=== PATIENT | male | born 1960 | race Caucasian/White ===

== ENCOUNTER 2021-02-07 15:48 | Inpatient (IN) | payer MEDICARE, MEDICAID ==
[~2021-02-07] VITALS: Ht 182.9 cm; Wt 131.8 kg
[2021-02-07 17:04] LABS: BASOPHILS % (AUTO) 0.5 % (0-1); EOSINOPHILS # (AUTO) 0.1 X10'3 (0-0.9); EOSINOPHILS % (AUTO) 1.4 % (0-6); HEMATOCRIT 30.6 % (42.0-52.0); HEMOGLOBIN 10.3 g/dl (14.0-17.9); LYMPHOCYTES % (AUTO) 24.9 % (21-51); MEAN CORPUSCULAR HEMOGLOBIN 33.4 PG (27.0-31.0); MEAN CORPUSCULAR HGB CONC 33.8 g/dL (33.0-36.5); MEAN CORPUSCULAR VOLUME 98.7 FL (78-98); MEAN PLATELET VOLUME 9.2 FL (7.4-10.4); MONOCYTES # (AUTO) 0.9 X10'3 (0-0.9); NEUTROPHILS % (AUTO) 62.2 % (42-75); PLATELET COUNT 196 X10'3 (140-440); RED CELL DISTRIBUTION WIDTH 15.4 % (11.5-14.5)
[2021-02-07 17:17] LABS: ALANINE AMINOTRANSFERASE 74 U/L (12-78); ALBUMIN 3.7 G/DL (3.4-5.0); ALBUMIN/GLOBULIN RATIO 0.8 (1.1-1.5); ALKALINE PHOSPHATASE 73 IU/L (46-116); ANION GAP 19 (8-16); ASPARTATE AMINO TRANSFERASE 109 U/L (10-37); BILIRUBIN,TOTAL 0.4 MG/DL (0.1-1.0); BLOOD UREA NITROGEN 77 MG/DL (7-18); BUN/CREATININE RATIO 5.9 (5.4-32.0); CALCIUM 6.1 MG/DL (8.5-10.1); CHLORIDE 98 MMOL/L (99-107); CREATININE 13.14 MG/DL (0.60-1.10); GLUCOSE 99 MG/DL (70-104); MAGNESIUM 2.1 MG/DL (1.5-2.4); SODIUM 139 MMOL/L (135-145); TOTAL CARBON DIOXIDE 22.3 MMOL/L (24-32); TOTAL PROTEIN 8.3 G/DL (6.4-8.2); eGFR 4 ML/MIN
[2021-02-07 17:23] LABS: POTASSIUM 6.4 MMOL/L (3.5-5.1)
[2021-02-07] MEDS ORDERED: cefTAZidime inj. 1 GM in normal saline 100ml IV soln 100 ML IV STA (17:39)
[2021-02-07] MEDS ORDERED: linezolid 600mg/300ml PREMIX 300 ML IV ONE (17:40)
[2021-02-07] MEDS ORDERED: heparin 1,000unit/ml 10ml vial 10 ML IV ONE (17:45)
[2021-02-07] MEDS ORDERED: heparin 1,000 units/ml 10ml inj IV ONE (17:45)
[2021-02-07] MEDS ORDERED: albumin (human) 25% 100ml IV 100 ML IV PRN (17:45)
[2021-02-07] MEDS ORDERED: heparin 1,000 units/ml 10ml inj HE ONE ×2 (17:50)
[2021-02-07] MEDS ORDERED: magnesium 4gm in 100ml NS 100 ML IV PRN (19:05)
[2021-02-07] MEDS ORDERED: diphenhydrAMINE 25mg capsule PO PRN (19:05)
[2021-02-07] MEDS ORDERED: magnesium Cl slow-release 64mg tablet PO PRN (19:05)
[2021-02-07] MEDS ORDERED: potassium Cl 20 mEq SR tablet PO PRN ×2 (19:05)
[2021-02-07] MEDS ORDERED: ondansetron/PF 4mg/2ml inj IV PRN (19:05)
[2021-02-07] MEDS ORDERED: magnesium hydroxide 30ml (MOM) UD suspension PO PRN (19:05)
[2021-02-07] MEDS ORDERED: magnesium 2GM in 50ml NS 50 ML IV PRN (19:05)
[2021-02-07] MEDS ORDERED: potassium Cl 40MEQ/1/2NS 520ml 520 ML IV PRN ×2 (19:05)
[2021-02-07] MEDS ORDERED: mag hydrox/Alum hydrox/simeth 30ml oral suspension PO PRN (19:05)
[2021-02-07] MEDS ORDERED: ipratropium/albuterol 3ml nebule NEB PRN (19:35)
[2021-02-07] MEDS ORDERED: methylPREDNISolone sod succ 125mg/2ml vial IV ONE (19:35)
[2021-02-07 20:00] VITALS: BP 127/74
[2021-02-07] MEDS: heparin, porcine 5000 units/ml vial SQ SCH (20:00)
[2021-02-07] MEDS: docusate sod 100mg capsule PO SCH (20:00)
[2021-02-07] MEDS ORDERED: cefTAZidime inj. 1 GM in normal saline 100ml IV soln 100 ML IV SCH (20:00)
[2021-02-07] MEDS: methylPREDNISolone sod succ 125mg/2ml vial IV SCH (20:00)
[2021-02-07] MEDS: K and/or MAG REPLACEMENT MC SCH (20:00)
--- NOTE | 2021-02-07 20:18 | NUR ---
Patient in [id number] . I have received report from Rober- [facility] IN ER and had the opportunity to ask questions and assume patient care.
[2021-02-07 22:00] VITALS: BP 120/91
--- NOTE | 2021-02-07 22:06 | NUR ---
pt having difficulty breathing, Sa02 low in mid 80s, pt denies any problems, RT notified and Dr Vallejo
--- NOTE | 2021-02-07 22:14 | NUR ---
Dr Vallejo called, ordered ABG and lasix 4mg IV once.
[2021-02-07] MEDS: ipratropium/albuterol 3ml nebule NEB SCH (22:15)
[2021-02-07] MEDS ORDERED: furosemide 40mg/4ml inj IV ONE (22:15)
[2021-02-07 22:25] LABS: ABG BASE EXCESS -9.3 mmol/L (-2.0-2.0); ABG HCO3 19.8 mmol/L (22.0-26.0); ABG PCO2 (T) 57.9 mmHg (35.0-48.0); ABG PO2 (T) 97.8 mmHg (75.0-100.0); ALLEN'S TEST POSITIVE; FCOHb 1.3 % (0.0-3.9); FMetHb 0.3 % (0.0-1.5); FO2Hb 93.5 % (94-97)
--- NOTE | 2021-02-07 22:52 | NUR ---
RT evaluated pt ABG ph 7.152, Dr Vallejo Ordered Bipap. P trecieving treatment at 40%Fi02, Dialysis here also
[2021-02-07 23:39] LABS: ABG BASE EXCESS -8.1 mmol/L (-2.0-2.0); ABG HCO3 20.4 mmol/L (22.0-26.0); ABG PCO2 (T) 55.6 mmHg (35.0-48.0); ABG PO2 (T) 66.2 mmHg (75.0-100.0); ALLEN'S TEST POSITIVE; FCOHb 1.1 % (0.0-3.9); FMetHb 0.1 % (0.0-1.5); TOTAL HEMOGLOBIN 11.9 G/dl (14.0-18.0)
--- NOTE | 2021-02-07 23:48 | NUR ---
2nd ABG done, ph 7.18 RT readjusting treatment.
[2021-02-08 02:00] VITALS: BP 147/80
[2021-02-08] MEDS: methylPREDNISolone sod succ 125mg/2ml vial IV SCH ×4 (02:00→20:27)
[2021-02-08] MEDS: ipratropium/albuterol 3ml nebule NEB SCH ×6 (03:18→23:21)
[2021-02-08 06:00] VITALS: BP 168/88
[2021-02-08 06:09] LABS: BASOPHILS % (AUTO) 0.3 % (0-1); EOSINOPHILS # (AUTO) 0.1 X10'3 (0-0.9); EOSINOPHILS % (AUTO) 1.1 % (0-6); HEMATOCRIT 33.5 % (42.0-52.0); LYMPHOCYTES # (AUTO) 1.6 X10'3 (1.1-4.8); LYMPHOCYTES % (AUTO) 23.6 % (21-51); MEAN CORPUSCULAR HGB CONC 32.7 g/dL (33.0-36.5); MEAN CORPUSCULAR VOLUME 100.9 FL (78-98); MEAN PLATELET VOLUME 9.1 FL (7.4-10.4); MONOCYTES # (AUTO) 0.7 X10'3 (0-0.9); MONOCYTES % (AUTO) 10.1 % (2-12); NEUTROPHILS # (AUTO) 4.4 X10'3 (1.8-7.7); NEUTROPHILS % (AUTO) 64.9 % (42-75); PLATELET COUNT 195 X10'3 (140-440); RED BLOOD COUNT 3.32 X10'6 (4.70-6.10); RED CELL DISTRIBUTION WIDTH 15.7 % (11.5-14.5); WHITE BLOOD COUNT 6.7 X10'3 (4.5-11.0)
--- NOTE | 2021-02-08 06:30 | NUR ---
Patient in room PCU 3019. I have received report from Barbara FORD and had the opportunity to ask questions and assume patient care.
[2021-02-08 06:31] LABS: ALANINE AMINOTRANSFERASE 365 U/L (12-78); ALBUMIN 3.6 G/DL (3.4-5.0); ALBUMIN/GLOBULIN RATIO 0.8 (1.1-1.5); ALKALINE PHOSPHATASE 72 IU/L (46-116); ANION GAP 16 (8-16); ASPARTATE AMINO TRANSFERASE 821 U/L (10-37); BILIRUBIN,TOTAL 0.6 MG/DL (0.1-1.0); BLOOD UREA NITROGEN 50 MG/DL (7-18); BUN/CREATININE RATIO 5.1 (5.4-32.0); CALCIUM 7.3 MG/DL (8.5-10.1); CHLORIDE 99 MMOL/L (99-107); CHOL/HDL RATIO 5.7 (0.00-4.99); CHOLESTEROL 142 MG/DL (0-200); CREATININE 9.77 MG/DL (0.60-1.10); GLUCOSE 78 MG/DL (70-104); HDL CHOLESTEROL 25 MG/DL (35-60); LDL CHOLESTEROL 81 MG/DL (50-100); MAGNESIUM 1.9 MG/DL (1.5-2.4); PHOSPHORUS 8.1 MG/DL (2.3-4.5); POTASSIUM 4.4 MMOL/L (3.5-5.1); SODIUM 140 MMOL/L (135-145); TOTAL CARBON DIOXIDE 25.2 MMOL/L (24-32); TOTAL PROTEIN 8.4 G/DL (6.4-8.2); TRIGLYCERIDES 252 MG/DL (20-135); eGFR 5 ML/MIN
--- NOTE | 2021-02-08 06:49 | NUR ---
Patient in room PCU 3019. I have received report from Armando and had the opportunity to ask questions and assume patient care.
[2021-02-08] MEDS: K and/or MAG REPLACEMENT MC SCH ×2 (08:00→20:00)
[2021-02-08] MEDS: linezolid 600mg/300ml PREMIX 300 ML IV SCH ×2 (08:00→20:00)
[2021-02-08] MEDS: cefTAZidime inj. 1 GM in normal saline 100ml IV soln 100 ML IV SCH ×2 (08:00→20:00)
[2021-02-08] MEDS ORDERED: LIDOcaine 1% W/epiNEPHrine 1:200,000 10ml vial ONE (08:34)
[2021-02-08] MEDS ORDERED: heparin 1,000 units/ml 10ml inj HE ONE ×2 (08:55)
[2021-02-08] MEDS ORDERED: heparin 1,000unit/ml 10ml vial 10 ML IV ONE (08:55)
[2021-02-08] MEDS ORDERED: linezolid 600mg/300ml PREMIX 300 ML IV SCH (08:55)
[2021-02-08] MEDS ORDERED: heparin 1,000 units/ml 10ml inj IV ONE (08:55)
[2021-02-08] MEDS: docusate sod 100mg capsule PO SCH ×2 (09:21→20:00)
[2021-02-08] MEDS: heparin, porcine 5000 units/ml vial SQ SCH ×2 (09:21→20:26)
--- NOTE | 2021-02-08 10:29 | NUR ---
Page to PICC nurse: Good Morning. I have a renal patient Lazarus Renteria Room 3019, that we need a PIV on and no one has been successful. Thanks Kristy ext [phone]
--- NOTE | 2021-02-08 10:55 | NUR ---
Page Sent promotional table spacer PAGER ID: [phone] MESSAGE: [phone] Myra. Patient requesting gabapentin and Tylenol for neuropathy. Kristy [phone]
[2021-02-08 11:00] VITALS: BP 173/86
[2021-02-08] MEDS ORDERED: ALLO100T PO (11:28)
[2021-02-08] MEDS ORDERED: FURO-150 PO (11:28)
[2021-02-08] MEDS ORDERED: FAMO20TA8 PO (11:28)
[2021-02-08] MEDS ORDERED: METO1TAB12 PO (11:28)
[2021-02-08] MEDS ORDERED: VALS160T30 PO (11:28)
[2021-02-08] MEDS ORDERED: FENO145T38 PO (11:28)
[2021-02-08] MEDS ORDERED: AMLO-94 PO (11:28)
[2021-02-08] MEDS ORDERED: CALC667C5 PO ×2 (11:28)
[2021-02-08] MEDS ORDERED: CLOP75TA15 PO (11:32)
[2021-02-08] MEDS ORDERED: GABA300C PO (11:32)
[2021-02-08] MEDS ORDERED: ALBU8HFA PO (11:53)
[2021-02-08] MEDS ORDERED: METO-411 PO (11:53)
[2021-02-08] MEDS ORDERED: AMLO10TA13 PO (11:53)
[2021-02-08] MEDS ORDERED: TERA5CAP4 PO (11:53)
[2021-02-08] MEDS ORDERED: FURO-149 PO (11:53)
--- NOTE | 2021-02-08 12:16 | NUR ---
PT REFUSED SVN
--- NOTE | 2021-02-08 14:16 | NUR ---
Noted pt to be started on Zyvox however not given today as pt uncooperative per EMR. Pt would benefit from low tyramine nutrition therapy education if to receive Zyvox. Will continue to follow. Addendum: 02/08/21 at [address] Amended: Links added.
--- NOTE | 2021-02-08 15:30 | NUR ---
PT REFUSED 1500 SVN
[2021-02-08 18:00] VITALS: BP 160/64
--- NOTE | 2021-02-08 18:52 | NUR ---
Problems reprioritized. Patient report given, questions answered & plan of care reviewed with Barbara FORD.
--- NOTE | 2021-02-08 20:00 | NUR ---
Unabe to give ABX, as IV is not patent, unable to start IV, charge nurse notified and suggested for day shift ultrasound IV placement.
[2021-02-08] MEDS: furosemide 40mg tablet PO SCH (20:23)
[2021-02-08] MEDS: lactobacillus rhamnosus 10,000 MMU CELLS/CAPSULE PO SCH (20:23)
[2021-02-08] MEDS: famotidine 20mg tablet PO SCH (20:24)
[2021-02-08] MEDS: calcium acetate 667mg (PhosLO) capsule PO SCH (20:25)
[2021-02-08] MEDS: metoprolol succinate 25mg (24-HOUR) SR. Tablet PO SCH (20:32)
[2021-02-08 22:00] VITALS: BP 141/70
--- NOTE | 2021-02-08 22:29 | NUR ---
Paged Dr Vallejo concerning pt cramping in leg, Dr Vallejo called back and left message stating not her priority and to pass it on to day time MD.
[2021-02-08] MEDS: terazosin 5mg capsule PO SCH (22:32)
[2021-02-09] MEDS: gabapentin 300mg capsule PO SCH ×2 (00:26→11:13)
[2021-02-09 02:00] VITALS: BP 100/63
[2021-02-09] MEDS: methylPREDNISolone sod succ 125mg/2ml vial IV SCH ×4 (02:00→20:30)
[2021-02-09] MEDS: ipratropium/albuterol 3ml nebule NEB SCH ×5 (03:00→19:17)
[2021-02-09 06:00] LABS: BASOPHILS % (AUTO) 0.7 % (0-1); EOSINOPHILS # (AUTO) 0.1 X10'3 (0-0.9); EOSINOPHILS % (AUTO) 2.1 % (0-6); HEMATOCRIT 30.5 % (42.0-52.0); HEMOGLOBIN 10.2 g/dl (14.0-17.9); LYMPHOCYTES # (AUTO) 1.2 X10'3 (1.1-4.8); LYMPHOCYTES % (AUTO) 24.2 % (21-51); MEAN CORPUSCULAR HEMOGLOBIN 33.3 PG (27.0-31.0); MEAN CORPUSCULAR HGB CONC 33.5 g/dL (33.0-36.5); MEAN CORPUSCULAR VOLUME 99.5 FL (78-98); MEAN PLATELET VOLUME 9.1 FL (7.4-10.4); MONOCYTES # (AUTO) 0.5 X10'3 (0-0.9); PLATELET COUNT 158 X10'3 (140-440); RED BLOOD COUNT 3.07 X10'6 (4.70-6.10); RED CELL DISTRIBUTION WIDTH 15.3 % (11.5-14.5); WHITE BLOOD COUNT 4.8 X10'3 (4.5-11.0)
--- NOTE | 2021-02-09 06:05 | NUR ---
per tele report pt had third degree heart block at 0414 now in sinus rhythm.
--- NOTE | 2021-02-09 06:09 | NUR ---
Problems reprioritized. Patient report given, questions answered & plan of care reviewed with Rossy-LILIANA.
[2021-02-09 06:22] LABS: ALANINE AMINOTRANSFERASE 387 U/L (12-78); ALBUMIN/GLOBULIN RATIO 0.7 (1.1-1.5); ALKALINE PHOSPHATASE 66 IU/L (46-116); ANION GAP 12 (8-16); ASPARTATE AMINO TRANSFERASE 522 U/L (10-37); BILIRUBIN,TOTAL 0.5 MG/DL (0.1-1.0); BLOOD UREA NITROGEN 52 MG/DL (7-18); BUN/CREATININE RATIO 6.1 (5.4-32.0); CALCIUM 7.4 MG/DL (8.5-10.1); CHLORIDE 100 MMOL/L (99-107); CREATININE 8.59 MG/DL (0.60-1.10); GLUCOSE 114 MG/DL (70-104); MAGNESIUM 2.2 MG/DL (1.5-2.4); PHOSPHORUS 7.4 MG/DL (2.3-4.5); POTASSIUM 4.4 MMOL/L (3.5-5.1); SODIUM 138 MMOL/L (135-145); TOTAL CARBON DIOXIDE 25.6 MMOL/L (24-32); TOTAL PROTEIN 7.3 G/DL (6.4-8.2); eGFR 6 ML/MIN
--- NOTE | 2021-02-09 06:28 | NUR ---
Dr Vallejo ordered EKG for 3rd degree heart block report
--- NOTE | 2021-02-09 06:39 | NUR ---
Patient in room PCU 3019. I have received report from LILIANA AJ and had the opportunity to ask questions and assume patient care.
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
--- NOTE | 2021-02-09 06:45 | NUR ---
PAGE SENT PAGER ID: [phone] MESSAGE: [phone], RUFINO GOMES TAKEN PER ORDER. THANK YOU, NESS, [phone]
--- NOTE | 2021-02-09 07:26 | NUR ---
PT REFUSED 0600 VS PER SELF SEALING FUEL TANK REPAIRER
[2021-02-09] MEDS ORDERED: amLODIPine 5mg tablet PO SCH (08:00)
[2021-02-09] MEDS: docusate sod 100mg capsule PO SCH (08:00)
[2021-02-09] MEDS ORDERED: clopidogrel 75mg tablet PO SCH (08:00)
[2021-02-09] MEDS ORDERED: fenofibrate 145mg tablet PO SCH (08:00)
[2021-02-09] MEDS ORDERED: losartan 50mg tablet PO SCH (08:00)
[2021-02-09] MEDS: K and/or MAG REPLACEMENT MC SCH (08:00)
[2021-02-09] MEDS: furosemide 40mg tablet PO SCH ×3 (08:00→20:29)
[2021-02-09] MEDS ORDERED: allopurinol 100mg tablet PO SCH (08:00)
[2021-02-09 08:45] VITALS: BP 114/62
[2021-02-09] MEDS: heparin, porcine 5000 units/ml vial SQ SCH ×2 (08:53→20:30)
[2021-02-09] MEDS: lactobacillus rhamnosus 10,000 MMU CELLS/CAPSULE PO SCH ×2 (08:55→20:29)
[2021-02-09] MEDS: calcium acetate 667mg (PhosLO) capsule PO SCH ×3 (08:55→20:28)
[2021-02-09] MEDS: famotidine 20mg tablet PO SCH ×2 (08:56→20:28)
--- NOTE | 2021-02-09 09:46 | NUR ---
3019 PT'S PIV NOT PATENT. PT IS HD, PLEASE COME AND WORK YOUR MAGIC. THANK YOU. NESS Jeffers [phone]
[2021-02-09 11:00] VITALS: BP 141/67
--- NOTE | 2021-02-09 11:08 | NUR ---
0700 SVN TRIAGED. THERAPIST NOT AVAILABLE
[2021-02-09] MEDS: linezolid 600mg tablet PO SCH ×2 (11:11→20:29)
[2021-02-09] MEDS: metoprolol succinate 25mg (24-HOUR) SR. Tablet PO SCH (11:12)
[2021-02-09 11:13] VITALS: BP_SYST 142
[2021-02-09] MEDS ORDERED: DICL100G30 TOP (11:21)
--- NOTE | 2021-02-09 11:24 | NUR ---
PAGE SENT PAGER ID: [phone] MESSAGE: [phone], VANESSA CANCINO, PT REQUESTING DIECLOFEMAC CREAM FOR HIS FEET, MED FROM HOME, PT REQUESTING MED, REQUESTING ORDER. THANK YOU, NESS [phone]
--- NOTE | 2021-02-09 14:26 | NUR ---
PT'S AM SOLUMEDRJOSE HELD D/T NO IV ACCESS.
--- NOTE | 2021-02-09 14:42 | NUR ---
PAGE SENT PAGER ID: [phone] MESSAGE: [phone], VANESSA CANCINO. PT DENIES ALLERGY TO TYLENOL. PT REQUESTING TYLENOL AND PREVIOUSLY REQUESTED FOOT CREAM FOR PAIN RELIEF. THANK YOU, NESS Jeffers [phone]
--- NOTE | 2021-02-09 15:34 | NUR ---
VERBAL ORDERS FROM DR LORENZO TO HOLD METOPROLOL
--- NOTE | 2021-02-09 15:36 | NUR ---
PT REFUSED 1500 VS. WILL TRY LATER.
--- NOTE | 2021-02-09 17:44 | NUR ---
PT'S CAREGIVER FRANSICO , REPORTS THE PT HAS A DIALYSIS APPOINTMENT AT [facility] IN [place], 11:00 - 15:00.
--- NOTE | 2021-02-09 18:12 | NUR ---
Problems reprioritized. Patient report given, questions answered & plan of care reviewed with LILIANA AJ.
[2021-02-09] MEDS: terazosin 5mg capsule PO SCH (20:35)
[2021-02-09] MEDS ORDERED: gabapentin 300mg capsule PO SCH (21:00)
--- NOTE | 2021-02-09 22:13 | NUR ---
Pt yelling, wanting to go home because we wont give him his foot cream or tylenol. Raised his voice and was yelling at staff and cursing. Charge nurse notified and told the pt he was free to leave. Pt said he was getting DC so he could get his home meds and then sit in ED to be readmitted. charge nurse removed IV and pt dressed self and came into hallway where a wheel chair was brought to him, and left.
[2021-02-10] MEDS ORDERED: midazolam 1 mg/ML 2ml injection ONE (09:09)
[2021-02-10] MEDS ORDERED: heparin 1,000unit/ml 10ml vial 10 ML ONE (09:09)
[2021-02-10] MEDS ORDERED: fentaNYL/PF 50MCG/1 ML 2ML syringe ONE (09:09)
[2021-02-10] MEDS ORDERED: LIDOcaine 1% W/epiNEPHrine 1:200,000 10ml vial ONE (09:09)
== END 2021-02-09 22:00 | disposition left against medical advice (07) | DRG 314 ==
LOC: ER 15:49 → UNDOADMIN 19:08 → PCU 3S 19:08
PROVIDERS: ADMIT Family Medicine; ATTEND Family Medicine
PROC: 5A09357 Assistance with Respiratory Ventilation, Less than 24 Consecutive Hours, Continuous Positive Airway Pressure (ICD-10-PCS; 2021-02-07)
PROC: 5A1D70Z Performance of Urinary Filtration, Intermittent, Less than 6 Hours Per Day (ICD-10-PCS; 2021-02-07)
PROC: 05PYX3Z Removal of Infusion Device from Upper Vein, External Approach (ICD-10-PCS; principal; 2021-02-08)
PROC: 5A1D70Z Performance of Urinary Filtration, Intermittent, Less than 6 Hours Per Day (ICD-10-PCS; 2021-02-08)
DX: T80.211A Bloodstream infection due to central venous catheter, initial encounter (principal); N18.6 End stage renal disease; J96.20 Acute and chronic respiratory failure, unspecified whether with hypoxia or hypercapnia; E87.2 Acidosis; I44.2 Atrioventricular block, complete; J44.1 Chronic obstructive pulmonary disease with (acute) exacerbation; I12.0 Hypertensive chronic kidney disease with stage 5 chronic kidney disease or end stage renal disease; N17.9 Acute kidney failure, unspecified; E87.5 Hyperkalemia; E78.1 Pure hyperglyceridemia; E78.5 Hyperlipidemia, unspecified; G47.33 Obstructive sleep apnea (adult) (pediatric); G62.9 Polyneuropathy, unspecified; Z53.29 Procedure and treatment not carried out because of patient's decision for other reasons; I25.10 Atherosclerotic heart disease of native coronary artery without angina pectoris; K21.9 Gastro-esophageal reflux disease without esophagitis; F17.210 Nicotine dependence, cigarettes, uncomplicated; E66.01 Morbid (severe) obesity due to excess calories; F60.9 Personality disorder, unspecified; R74.01 Elevation of levels of liver transaminase levels; M10.9 Gout, unspecified; N40.0 Benign prostatic hyperplasia without lower urinary tract symptoms; Y84.8 Other medical procedures as the cause of abnormal reaction of the patient, or of later complication, without mention of misadventure at the time of the procedure; Z99.2 Dependence on renal dialysis; Z79.02 Long term (current) use of antithrombotics/antiplatelets; Z79.899 Other long term (current) drug therapy; Z91.19 Patient's noncompliance with other medical treatment and regimen; Z95.1 Presence of aortocoronary bypass graft; Z88.5 Allergy status to narcotic agent; Z71.6 Tobacco abuse counseling; Z68.39 Body mass index [BMI] 39.0-39.9, adult
CPT/HCPCS: 36415; 36589; 36600; 71045; 76700; 76937; 80053; 80061; 82803; 83036; 83605; 83735; 84100; 84145; 85018; 85025; 87040; 87081; 90935; 93005; 94640; 94660; 94760; 96374; 96375; 97161; 97530; 99291; A6213; G0257; G0378; J0713; J1644; J1940; J2020; J2150; J2250; J2930; J3010; Q0163

== ENCOUNTER 2021-02-09 22:42 | Inpatient (IN) | payer MEDICARE, MEDICAID ==
[~2021-02-09] VITALS: Ht 175.3 cm; Wt 120.0 kg
[~2021-02-09 22:42] MED LIST: ALBU8HFA PO; ALLO100T PO; AMLO10TA13 PO; CALC667C5 PO; CLOP75TA15 PO; DICL100G30 TOP; FAMO20TA8 PO; FENO145T38 PO; FURO-149 PO; GABA300C PO; METO-411 PO; TERA5CAP4 PO; VALS160T30 PO
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
[2021-02-10] VITALS (15 sets, daily range): BP systolic 92–136; BP diastolic 44–73
--- NOTE | 2021-02-10 01:22 | NUR ---
PT STATED HE TOOK ACETAMENOPHEN AND GABAPENTIN WHILE IN LOBBY AND USED CREAM FOR LEGS. STATED HE ONLY LEFT AMA BECAUSE OF EXCRUTIATING LEG PAIN. STATED HE NEEDED HIS HOME RX BUT IT WASNT BEING ADMINISTERED.
[2021-02-10 02:08] LABS: BASOPHILS % (AUTO) 0.2 % (0-1); EOSINOPHILS % (AUTO) 0.1 % (0-6); HEMATOCRIT 32.4 % (42.0-52.0); HEMOGLOBIN 10.7 g/dl (14.0-17.9); LYMPHOCYTES # (AUTO) 0.5 X10'3 (1.1-4.8); LYMPHOCYTES % (AUTO) 11.2 % (21-51); MEAN CORPUSCULAR HEMOGLOBIN 32.9 PG (27.0-31.0); MEAN CORPUSCULAR HGB CONC 33.1 g/dL (33.0-36.5); MEAN CORPUSCULAR VOLUME 99.3 FL (78-98); MONOCYTES # (AUTO) 0.1 X10'3 (0-0.9); NEUTROPHILS # (AUTO) 4.2 X10'3 (1.8-7.7); NEUTROPHILS % (AUTO) 86.5 % (42-75); PLATELET COUNT 192 X10'3 (140-440); RED BLOOD COUNT 3.27 X10'6 (4.70-6.10); RED CELL DISTRIBUTION WIDTH 15.2 % (11.5-14.5); WHITE BLOOD COUNT 4.9 X10'3 (4.5-11.0)
[2021-02-10 02:16] LABS: PARTIAL THROMBOPLASTIN TIME 26 SECONDS (22-32)
[2021-02-10 02:19] LABS: ALANINE AMINOTRANSFERASE 454 U/L (12-78); ALBUMIN 3.5 G/DL (3.4-5.0); ALBUMIN/GLOBULIN RATIO 0.8 (1.1-1.5); ALKALINE PHOSPHATASE 83 IU/L (46-116); ANION GAP 16 (8-16); ASPARTATE AMINO TRANSFERASE 435 U/L (10-37); BILIRUBIN,TOTAL 0.5 MG/DL (0.1-1.0); BLOOD UREA NITROGEN 79 MG/DL (7-18); BUN/CREATININE RATIO 7.2 (5.4-32.0); CALCIUM 7.8 MG/DL (8.5-10.1); CHLORIDE 98 MMOL/L (99-107); ETHANOL < 0.010 GM/DL (0.0-0.010); GLUCOSE 193 MG/DL (70-104); MAGNESIUM 2.1 MG/DL (1.5-2.4); POTASSIUM 5.1 MMOL/L (3.5-5.1); SODIUM 135 MMOL/L (135-145); TOTAL CARBON DIOXIDE 21.4 MMOL/L (24-32); TOTAL PROTEIN 8.1 G/DL (6.4-8.2); eGFR 5 ML/MIN
[2021-02-10] MEDS ORDERED: potassium Cl 40MEQ/1/2NS 520ml 520 ML IV PRN ×2 (03:20)
[2021-02-10] MEDS ORDERED: acetaminophen 325mg tablet PO PRN (03:20)
[2021-02-10] MEDS ORDERED: magnesium 2GM in 50ml NS 50 ML IV PRN (03:20)
[2021-02-10] MEDS ORDERED: magnesium 4gm in 100ml NS 100 ML IV PRN (03:20)
[2021-02-10] MEDS ORDERED: ondansetron/PF 4mg/2ml inj IV PRN (03:20)
[2021-02-10] MEDS ORDERED: potassium Cl 20 mEq SR tablet PO PRN ×2 (03:20)
[2021-02-10] MEDS ORDERED: DICLOFENAC SODIUM TOP PRN (03:20)
[2021-02-10] MEDS ORDERED: albuterol 2.5 MG/3 ML nebule NEB PRN (03:30)
--- NOTE | 2021-02-10 07:00 | NUR ---
Problems reprioritized. Patient report given, questions answered & plan of care reviewed with Margie FORD.
[2021-02-10] MEDS ORDERED: EPOETIN ALFA-EPBX 20,000 UNIT/ML 1 ML MDV IV ONE (07:40)
[2021-02-10] MEDS ORDERED: albumin (human) 25% 100ml IV 100 ML IV PRN (07:40)
[2021-02-10] MEDS ORDERED: heparin 1,000 units/ml 10ml inj IV ONE (07:40)
[2021-02-10] MEDS ORDERED: heparin 1,000unit/ml 10ml vial 10 ML IV ONE (07:40)
[2021-02-10] MEDS ORDERED: heparin 1,000 units/ml 10ml inj HE ONE ×2 (07:45)
[2021-02-10] MEDS: K and/or MAG REPLACEMENT MC SCH ×2 (08:00→20:23)
[2021-02-10] MEDS: docusate sod 100mg capsule PO SCH ×2 (08:00→20:22)
[2021-02-10] MEDS: clopidogrel 75mg tablet PO SCH (08:00)
[2021-02-10] MEDS: heparin, porcine 5000 units/ml vial SQ SCH ×2 (08:00→17:38)
[2021-02-10] MEDS: allopurinol 100mg tablet PO SCH (09:12)
[2021-02-10] MEDS: amLODIPine 5mg tablet PO SCH (09:14)
[2021-02-10] MEDS: fenofibrate 145mg tablet PO SCH (09:14)
[2021-02-10] MEDS: calcium acetate 667mg (PhosLO) capsule PO SCH ×3 (09:14→20:22)
[2021-02-10] MEDS: gabapentin 300mg capsule PO SCH ×2 (09:14→17:37)
[2021-02-10] MEDS: famotidine 20mg tablet PO SCH ×2 (09:15→20:22)
[2021-02-10] MEDS: losartan 50mg tablet PO SCH (09:15)
[2021-02-10] MEDS: nicotine 14mg patch - 24hr TD SCH (09:15)
--- NOTE | 2021-02-10 18:00 | NUR ---
Patient in room PCU 3012. I have received report from ayla carrillo and had the opportunity to ask questions and assume patient care.
--- NOTE | 2021-02-10 18:32 | NUR ---
Problems reprioritized. Patient report given, questions answered & plan of care reviewed with Haylee FORD.
[2021-02-11] MEDS: heparin, porcine 5000 units/ml vial SQ SCH ×2 (00:14→07:53)
[2021-02-11] MEDS: gabapentin 300mg capsule PO SCH ×2 (00:14→07:52)
[2021-02-11 02:00] VITALS: BP 128/76
[2021-02-11 06:00] VITALS: BP 141/70
--- NOTE | 2021-02-11 06:30 | NUR ---
Patient in room PCU 3012. I have received report from UYEN FORD and had the opportunity to ask questions and assume patient care. BEDSIDE REPORT COMPLETED. PT SLEEPING .NO DISTRESS. CALL LIGHT IN REACH. Addendum: 02/11/21 at 0702 by Ruby Sumner RN Amended: Links added.
--- NOTE | 2021-02-11 07:21 | NUR ---
Problems reprioritized. Patient report given, questions answered & plan of care reviewed with JEIMY FORD. PT REMAINS SLEEPING. NO DISTRESS.. Addendum: 02/11/21 at 6122 by Ruby Sumner RN Amended: Links added.
[2021-02-11 07:23] LABS: BASOPHILS % (AUTO) 0.1 % (0-1); EOSINOPHILS % (AUTO) 0 % (0-6); HEMATOCRIT 31.6 % (42.0-52.0); HEMOGLOBIN 10.5 g/dl (14.0-17.9); LYMPHOCYTES # (AUTO) 1.3 X10'3 (1.1-4.8); LYMPHOCYTES % (AUTO) 14.3 % (21-51); MEAN CORPUSCULAR HEMOGLOBIN 33.2 PG (27.0-31.0); MEAN CORPUSCULAR HGB CONC 33.3 g/dL (33.0-36.5); MEAN CORPUSCULAR VOLUME 99.6 FL (78-98); MEAN PLATELET VOLUME 8.9 FL (7.4-10.4); MONOCYTES # (AUTO) 0.9 X10'3 (0-0.9); MONOCYTES % (AUTO) 9.6 % (2-12); PLATELET COUNT 162 X10'3 (140-440); RED BLOOD COUNT 3.17 X10'6 (4.70-6.10); RED CELL DISTRIBUTION WIDTH 15.7 % (11.5-14.5); WHITE BLOOD COUNT 9.2 X10'3 (4.5-11.0)
--- NOTE | 2021-02-11 07:23 | NUR ---
Patient in room PCU 3012. I have received report from Yue FORD and had the opportunity to ask questions and assume patient care.
[2021-02-11 07:47] LABS: ALANINE AMINOTRANSFERASE 336 U/L (12-78); ALBUMIN 3.3 G/DL (3.4-5.0); ALBUMIN/GLOBULIN RATIO 0.8 (1.1-1.5); ALKALINE PHOSPHATASE 71 IU/L (46-116); ANION GAP 15 (8-16); ASPARTATE AMINO TRANSFERASE 183 U/L (10-37); BILIRUBIN,TOTAL 0.4 MG/DL (0.1-1.0); BLOOD UREA NITROGEN 61 MG/DL (7-18); BUN/CREATININE RATIO 7.1 (5.4-32.0); CALCIUM 7.7 MG/DL (8.5-10.1); CHLORIDE 101 MMOL/L (99-107); CREATININE 8.55 MG/DL (0.60-1.10); GLUCOSE 102 MG/DL (70-104); MAGNESIUM 2.2 MG/DL (1.5-2.4); POTASSIUM 4.6 MMOL/L (3.5-5.1); SODIUM 141 MMOL/L (135-145); TOTAL CARBON DIOXIDE 24.8 MMOL/L (24-32); TOTAL PROTEIN 7.5 G/DL (6.4-8.2); eGFR 6 ML/MIN
[2021-02-11] MEDS: famotidine 20mg tablet PO SCH (07:49)
[2021-02-11] MEDS: calcium acetate 667mg (PhosLO) capsule PO SCH ×2 (07:50→13:03)
[2021-02-11] MEDS: fenofibrate 145mg tablet PO SCH (07:50)
[2021-02-11 07:52] VITALS: BP_SYST 141
[2021-02-11] MEDS: losartan 50mg tablet PO SCH (07:52)
[2021-02-11] MEDS: clopidogrel 75mg tablet PO SCH (07:52)
[2021-02-11] MEDS: amLODIPine 5mg tablet PO SCH (07:52)
[2021-02-11] MEDS: allopurinol 100mg tablet PO SCH (07:53)
[2021-02-11] MEDS: nicotine 14mg patch - 24hr TD SCH (07:53)
[2021-02-11] MEDS: K and/or MAG REPLACEMENT MC SCH (08:00)
[2021-02-11] MEDS: docusate sod 100mg capsule PO SCH (08:00)
[2021-02-11] MEDS ORDERED: LINE600T12 PO (09:35)
[2021-02-11] MEDS ORDERED: HYDR-4069 PO (09:37)
[2021-02-11] MEDS ORDERED: ALBU8.5H17 INH (09:37)
[2021-02-11] MEDS ORDERED: linezolid 600mg tablet PO ONE (10:10)
--- NOTE | 2021-02-11 15:05 | NUR ---
PAGER ID: [phone] MESSAGE: Re: Vik Francis. Room: 3023A. Pt converted to A-fib with RVR. heart sustaining in the 130's. BP: 131/70. Pt is not symptomatic. -[facility] #[id number] -Dr. He paged concerning Pt's heart rate
--- NOTE | 2021-02-11 15:15 | NUR ---
Pt DC'd home with caregiver. Pt alert and oriented and vitals WNL upon DC. Per Dr. Oconnor; Pt is stable for DC. IV removed, canula intact. Tele-box removed and returned to tele-tech. DC paperwork printed out and gone over with Pt. Allowed both Pt and resident care manager to ask questions concerning DC and then answered them. new prescriptions called into [facility] on [address]. Pt stated that he will make an appt with Dr. Knapp to follow up with event monitor fit. Pt's belongings gathered and sent with Pt. Pt wheeled down to lobby via wheelchair. Pt left in private vehicle with caregiver for home in [place].
[2021-02-12] MEDS ORDERED: gabapentin 100mg capsule PO SCH (21:00)
== END 2021-02-11 15:15 | disposition home or self-care (01) | DRG 314 ==
LOC: ER 22:43 → ED HOLD 02-10 03:25 → PCU 3S 02-10 05:10
PROVIDERS: ADMIT Family Medicine; ATTEND Internal Medicine
PROC: 0JH63XZ Insertion of Tunneled Vascular Access Device into Chest Subcutaneous Tissue and Fascia, Percutaneous Approach (ICD-10-PCS; principal; 2021-02-10)
PROC: 02H633Z Insertion of Infusion Device into Right Atrium, Percutaneous Approach (ICD-10-PCS; 2021-02-10)
PROC: B548ZZA Ultrasonography of Superior Vena Cava, Guidance (ICD-10-PCS; 2021-02-10)
PROC: B5181ZA Fluoroscopy of Superior Vena Cava using Low Osmolar Contrast, Guidance (ICD-10-PCS; 2021-02-10)
PROC: 5A1D70Z Performance of Urinary Filtration, Intermittent, Less than 6 Hours Per Day (ICD-10-PCS; 2021-02-10)
DX: T80.212A Local infection due to central venous catheter, initial encounter (principal); N18.6 End stage renal disease; I44.2 Atrioventricular block, complete; I12.0 Hypertensive chronic kidney disease with stage 5 chronic kidney disease or end stage renal disease; E78.00 Pure hypercholesterolemia, unspecified; E78.5 Hyperlipidemia, unspecified; G62.9 Polyneuropathy, unspecified; K21.9 Gastro-esophageal reflux disease without esophagitis; M10.9 Gout, unspecified; E87.5 Hyperkalemia; F17.210 Nicotine dependence, cigarettes, uncomplicated; R74.01 Elevation of levels of liver transaminase levels; I73.9 Peripheral vascular disease, unspecified; D63.8 Anemia in other chronic diseases classified elsewhere; I25.10 Atherosclerotic heart disease of native coronary artery without angina pectoris; I89.0 Lymphedema, not elsewhere classified; J44.9 Chronic obstructive pulmonary disease, unspecified; F60.9 Personality disorder, unspecified; N40.0 Benign prostatic hyperplasia without lower urinary tract symptoms; Y83.8 Other surgical procedures as the cause of abnormal reaction of the patient, or of later complication, without mention of misadventure at the time of the procedure; Z80.8 Family history of malignant neoplasm of other organs or systems; Z99.2 Dependence on renal dialysis; Z86.718 Personal history of other venous thrombosis and embolism; Z95.1 Presence of aortocoronary bypass graft; Z88.5 Allergy status to narcotic agent; Z79.899 Other long term (current) drug therapy; Z71.6 Tobacco abuse counseling; Y92.89 Other specified places as the place of occurrence of the external cause; Z91.19 Patient's noncompliance with other medical treatment and regimen; Z79.02 Long term (current) use of antithrombotics/antiplatelets
CPT/HCPCS: 36415; 36558; 71045; 76937; 77001; 80053; 80320; 83605; 83735; 85025; 85610; 85730; 87040; 93005; 93922; 93970; 94760; 99152; 99153; 99285; A9270; C1750; C1769; C1894; G0257; G0378; J1644; J2150; Q4081